=== PATIENT | female | born 1970 | race Caucasian/White ===

== ENCOUNTER 2017-07-06 14:09 | Emergency (ER) | payer OTHER ==
[2017-07-06] MEDS ORDERED: Diazepam 5 MG TAB ONE (14:49)
[2017-07-06] MEDS ORDERED: Ketorolac Tromethamine 30 MG/ML VIAL ONE ×2 (14:49→17:49)
[2017-07-06 15:04] LABS: #Basophils 0.1 thou/uL (0.0-0.2); #Eosinphils 0.2 thou/uL (0.0-0.7); #Lymphocytes 2.2 thou/uL (1.20-3.40); #Monocytes 0.5 thou/uL (0.11-0.59); #Neutrophils 4.7 thou/uL (1.40-6.50); %Eosinophils 2.3 % (0.0-10.0); %Lymphocytes 28.9 % (21.0-51.0); %Monocytes 5.9 % (0.0-10.0); %Neutrophils 61.9 % (42.0-75.0); Hemoglobin 15.3 g/dL (12.0-16.0); Mean Corpuscular HGB CONC 34.1 g/dL (32.0-36.0); Mean Corpuscular Hemoglobin 32.9 pg (27.0-31.0); Mean Corpuscular Volume 96.3 fl (81.0-99.0); Mean Platelet Volume 8.1 fL (7.4-10.4); Platelet Count 231 thou/uL (130-400); RBC Distribution Width 11.2 % (11.5-14.5); Red Blood Cell (RBC) Count 4.65 mill/uL (4.20-5.40); White Blood Cell (WBC) Count 7.6 thou/uL (4.8-10.8)
[2017-07-06 15:25] LABS: Anion Gap 14 mmol/L (10-20); BUN (Urea Nitrogen) 7 mg/dL (7.0-18.7); Calc. Creatinine Clearance 0 mL/min (70-130); Calcium 9.7 mg/dL (7.8-10.44); Carbon Dioxide 23 mmol/L (22-29); Chloride 102 mmol/L (98-107); Estimated GFR-MDRD 87; Glucose 102 mg/dL (70-105); Potassium 3.7 mmol/L (3.5-5.1); Sodium 135 mmol/L (136-145)
--- NOTE | 2017-07-06 16:10 | CT ---
EXAM: ABDOMEN CT WITHOUT CONTRAST PELVIC CT WITHOUT CONTRAST LIMITED CT OF THE LUMBAR SPINE 07/06/17 HISTORY: Excruciating back pain which began an hour ago. Patient was walking on a flat surface when patient to ok a bad step and felt a searing pain in her back. COMPARISON: None. TECHNIQUE: Abdomen and pelvic CT performed without IV contrast utilizing a renal stone protocol. Coronal reforma tted images are submitted for interpretation. Limited CT of the lumbar spine is performed with reformatted images. FINDINGS: ABDOMEN CT: Lung bases are clear. Normal heart size. No significant pericardial fluid. The descending thoracic ao rta and abdominal aorta have an overall normal caliber. No periaortic fat stranding. Gallbladder is surgically absent. No gastrohepatic, retrocrural or periportal lymphadenopathy. No mesenteric mass, lymphadenopathy, free air or free fluid. Limited evaluation of the solid organs due to lack of IV contrast. Grossly, no solid organ abnormalit y. Symmetric attenuation of the psoas muscles. Limited evaluation of the alimentary canal due to lack of oral contrast. No evidence of bowel obstruc tion. Ileocecal junction is normal. Normal caliber appendix. material in a nondistended, nondil ated colon. Bilaterally, no evidence of hydronephrosis, nephrolithiasis, or perinephric fat stranding. Bilateral ureters have a normal caliber. No hydroureter, ureteral fat stranding or ureterolithiasis. PELVIC CT: Uterus and adnexal structures are unremarkable. Urinary bladder is unremarkable. No retroperitoneal mass, lymphadenopathy or hematoma. There are no lytic or blastic lesions in the osseous structures. Lumbar spine vertebral body height is maintained. No fracture. No spondylolisthesis or spondylolysis. Limited evaluation of the contents of the central spinal canal and neural foramina. No high grade michael nosis. IMPRESSION: 1. No evidence of obstructive uropathy. 2. Normal caliber appendix. 3. No evidence of fracture. POS: [facility]
[2017-07-06 16:41] LABS: Bilirubin Negative (Negative); Blood, Urine Negative (Negative); Clarity CLEAR (Clear); Glucose, Urine (Dipstick) Negative (Negative); Leukocyte Trace (Negative); Nitrite Negative (Negative); Protein, Urine (Dipstick) Negative (Neg-Trace); Specific Gravity, Urine 1.004 (1.002-1.036); Urobilinogen 0.2 mg/dL (0.2-1.0)
[2017-07-06 16:43] LABS: Bacteria/HPF Rare-Few HPF (None Seen); Hyaline Casts/LPF 0-3 HYALINE CAST LPF (0-3 Hyaline); RBC/HPF None Seen HPF (0-3); Squamous Epithelial 0-3 HPF (0-3); WBC/HPF 0-3 HPF (0-3)
== END 2017-07-06 17:50 | disposition home or self-care (01) ==
LOC: ERS 14:09
DX: M54.5 Low back pain (principal); F32.9 Major depressive disorder, single episode, unspecified; Z79.899 Other long term (current) drug therapy
CPT/HCPCS: 36415; 74176; 80048; 81003; 81015; 85025; 96374; 96375; 96376; J1885; J2270

== ENCOUNTER 2017-09-05 07:11 | Outpatient (CLI) | payer OTHER | END 2017-09-05 07:12 | disposition home or self-care (01) | LOC: BICULT 07:11 | PROVIDERS: ATTEND Family Medicine | DX: R10.84 Generalized abdominal pain; Z90.49 Acquired absence of other specified parts of digestive tract | CPT/HCPCS: 76700 ==

== ENCOUNTER 2017-10-04 10:27 | Outpatient (CLI) | payer OTHER | END 2017-10-04 10:28 | disposition home or self-care (01) | LOC: BICMAMMO 10:27 | PROVIDERS: ATTEND Obstetrics & Gynecology | DX: Z12.31 Encounter for screening mammogram for malignant neoplasm of breast (principal) | CPT/HCPCS: 77063; 77067 ==

== ENCOUNTER 2019-01-02 08:05 | Outpatient (CLI) | payer OTHER ==
--- NOTE | 2019-01-02 08:53 | MMO ---
Bilateral MAMMO Bilat Screen [facility]. CLINICAL HISTORY: Patient is 48 years old and is seen for screening. The patient has no family history of breast cancer. The patient has no personal history of cancer. VIEWS: The views performed were: bilateral craniocaudal with tomosynthesis and bilateral mediolateral oblique with tomosynthesis. FILMS COMPARED: The present examination has been compared to prior imaging studies performed at [facility] on 03/10/2012, 06/11/2013, 05/20/2015 and 10/04/2017. MAMMOGRAM FINDINGS: There are scattered fibroglandular densities. There are no suspicious masses, suspicious calcifications, or new areas of architectural distortion. IMPRESSION: THERE IS NO MAMMOGRAPHIC EVIDENCE OF MALIGNANCY. A ROUTINE FOLLOW-UP MAMMOGRAM IN 1 YEAR IS RECOMMENDED. THE RESULTS OF THIS EXAM WERE SENT TO THE PATIENT. ACR BI-RADS Category 1 - Negative MAMMOGRAPHY NOTE: 1. A negative mammogram report should not delay a biopsy if a dominant of clinically suspicious mass is present. 2. Approximately 10% to 15% of breast cancers are not detected by mammography. 3. Adenosis and dense breasts may obscure an underlying neoplasm. Reported by: TRINI AMARO MD Electonically Signed: [id number]
== END 2019-01-02 08:06 | disposition home or self-care (01) ==
LOC: BICMAMMO 08:05
PROVIDERS: ATTEND Obstetrics & Gynecology
DX: Z12.31 Encounter for screening mammogram for malignant neoplasm of breast (principal)
CPT/HCPCS: 77063; 77067

== ENCOUNTER 2021-07-23 07:54 | Outpatient (CLI) | payer BC | END 2021-07-23 07:55 | disposition home or self-care (01) | LOC: BICMAMMO 07:54 | PROVIDERS: ATTEND Obstetrics & Gynecology | DX: Z12.31 Encounter for screening mammogram for malignant neoplasm of breast (principal) | CPT/HCPCS: 77063; 77067 ==

== ENCOUNTER 2022-04-20 23:20 | Observation (INO) | payer BC ==
[2022-04-20] MEDS ORDERED: Aspirin Chewable 81 MG TAB ONE (23:49)
[2022-04-21 00:55] LABS: #Basophils 0.1 thou/uL (0.0-0.2); #Eosinphils 0.2 thou/uL (0.0-0.7); #Lymphocytes 3.6 thou/uL (1.20-3.40); #Monocytes 0.7 thou/uL (0.11-0.59); #Neutrophils 4.2 thou/uL (1.40-6.50); %Basophils 0.9 % (0.0-1.0); %Eosinophils 1.9 % (0.0-10.0); %Lymphocytes 41.1 % (21.0-51.0); %Monocytes 8.4 % (0.0-10.0); %Neutrophils 47.7 % (42.0-75.0); Hemoglobin 13.3 g/dL (12.0-16.0); Mean Corpuscular HGB CONC 35.6 g/dL (32.0-36.0); Mean Corpuscular Hemoglobin 35.6 pg (27.0-31.0); Mean Platelet Volume 7.7 fL (7.4-10.4); Platelet Count 218 10x3/uL (130-400); RBC Distribution Width 10.7 % (11.5-14.5); Red Blood Cell (RBC) Count 3.73 mill/uL (4.20-5.40); White Blood Cell (WBC) Count 8.9 10x3/uL (4.8-10.8)
[2022-04-21 02:18] LABS: ALT (SGPT) 16 U/L (8-55); AST (SGOT) 14 U/L (5-34); Albumin 3.8 g/dL (3.5-5.0); Alkaline Phosphatase 62 U/L (40-110); Anion Gap 12 mmol/L (10-20); BUN (Urea Nitrogen) 10 mg/dL (9.8-20.1); Bilirubin, Total 0.4 mg/dL (0.2-1.2); CK (CPK) 61 U/L (29-168); Calc. Creatinine Clearance 0 mL/min (70-130); Calcium 8.9 mg/dL (7.8-10.44); Carbon Dioxide 26 mmol/L (22-29); Chloride 93 mmol/L (98-107); Estimated GFR 105; Globulin 2.4 g/dL (2.4-3.5); Glucose 97 mg/dL (70-105); Lipase 26 U/L (8-78); Potassium 3.1 mmol/L (3.5-5.1); Protein, Total 6.2 g/dL (6.0-8.3); Sodium 128 mmol/L (136-145)
[2022-04-21] MEDS ORDERED: Potassium Chloride 20 MEQ TAB ONE (03:00)
[2022-04-21] MEDS ORDERED: Acetaminophen 325 MG TAB PO PRN (03:35)
[2022-04-21] MEDS ORDERED: Ondansetron PF 4 MG/2 ML Vial IVP PRN (03:35)
[2022-04-21] MEDS ORDERED: Ondansetron ODT 4 MG TAB PO PRN (03:35)
[2022-04-21] MEDS ORDERED: Calcium Carbonate 500 MG ChewTAB PO PRN (03:35)
[2022-04-21] MEDS ORDERED: Nitroglycerin 0.4 MG TAB (25 Tab Bottle) SL PRN (03:48)
[2022-04-21 04:15] VITALS: BMI 29.9
[2022-04-21 04:22] LABS: Cardiac Risk 3.6 (Less than 4.5); Cholesterol 127 mg/dl (< 200 Desired); HDL Cholesterol 35 mg/dL (>60 Neg Risk); LDL Cholesterol, Calculated 67 mg/dL; Magnesium 1.8 mg/dL (1.6-2.6); Triglycerides 127 mg/dL (Less than 150)
[2022-04-21] MEDS ORDERED: ALPRAZolam 1 MG TAB PO PRN (04:52)
[2022-04-21 05:29] LABS: Troponin I Less than 0.010 ng/mL (< 0.028)
[2022-04-21] MEDS ORDERED: Potassium Chloride 20 MEQ TAB PO SCH (07:30)
[2022-04-21 07:35] LABS: Troponin I Less than 0.010 ng/mL (< 0.028)
[2022-04-21] MEDS ORDERED: Aspirin Chewable 81 MG TAB PO SCH (09:00)
[2022-04-21] MEDS ORDERED: Hydrochlorothiazide 25 MG TAB PO SCH (09:00)
[2022-04-21] MEDS ORDERED: Methimazole 5 MG TAB PO SCH (09:00)
[2022-04-21] MEDS ORDERED: Bupropion 150 MG XL TAB PO SCH (09:00)
[2022-04-21] MEDS ORDERED: Baclofen 10 MG TAB PO SCH (09:00)
[2022-04-21] MEDS ORDERED: Amitriptyline HCl 25 MG TAB PO SCH (09:00)
[2022-04-21] MEDS ORDERED: ALPRAZolam 1 MG TAB PO SCH (09:00)
[2022-04-21 11:55] VITALS: BP 111/78; TEMP 97.8
[2022-04-21] MEDS ORDERED: ADENOSINE 60 MG/20 ML VIAL ONE (12:00)
[2022-04-21] MEDS ORDERED: Atorvastatin Calcium 10 MG TAB PO SCH (21:00)
== END 2022-04-21 13:15 | disposition home or self-care (01) ==
LOC: ERS 23:20 → 2SW 04-21 02:41
PROVIDERS: ADMIT Internal Medicine; ATTEND Internal Medicine
DX: R07.9 Chest pain, unspecified (principal); E05.90 Thyrotoxicosis, unspecified without thyrotoxic crisis or storm; I10 Essential (primary) hypertension; E78.5 Hyperlipidemia, unspecified; G89.29 Other chronic pain; M54.50 Low back pain, unspecified; I45.10 Unspecified right bundle-branch block; Z79.899 Other long term (current) drug therapy; Z88.1 Allergy status to other antibiotic agents; Z88.8 Allergy status to other drugs, medicaments and biological substances; Z20.822 Contact with and (suspected) exposure to COVID-19
CPT/HCPCS: 36415; 71045; 78452; 80053; 80061; 82550; 83690; 83735; 83880; 84443; 84484; 85025; 85379; 93005; 93017; A9500; G0378; J0153; U0003; U0005

== ENCOUNTER 2023-07-21 09:41 | Outpatient (CLI) | payer BC | END 2023-07-21 09:42 | disposition home or self-care (01) | LOC: BICMAMMO 09:41 | PROVIDERS: ATTEND Family Medicine | DX: Z12.31 Encounter for screening mammogram for malignant neoplasm of breast (principal) | CPT/HCPCS: 77063; 77067 ==

== ENCOUNTER 2025-01-16 08:23 | Outpatient (CLI) | payer BC ==
[2025-01-16 09:44] LABS: Anion Gap 10 mmol/L (10-20); BUN (Urea Nitrogen) 11 mg/dL (9.8-20.1); Calc. Creatinine Clearance 0 mL/min (70-130); Calcium 9.1 mg/dL (7.8-10.44); Carbon Dioxide 26 mmol/L (22-29); Chloride 103 mmol/L (98-107); Glucose 125 mg/dL (70-105); Potassium 4.0 mmol/L (3.5-5.1); Sodium 135 mmol/L (136-145)
== END 2025-01-16 08:24 | disposition home or self-care (01) ==
LOC: LABBT 08:23
PROVIDERS: ATTEND Orthopaedic Surgery
DX: Z01.812 Encounter for preprocedural laboratory examination (principal); G56.02 Carpal tunnel syndrome, left upper limb
CPT/HCPCS: 80048

== ENCOUNTER 2025-01-21 06:03 | Day surgery (SDC) | payer BC ==
[2025-01-16 08:49] VITALS: BMI 30.2
[2025-01-21] MEDS ORDERED: CEFAZOLIN 2 GM VIAL ONE (06:15)
[2025-01-21] MEDS ORDERED: Ketorolac Tromethamine 30 MG (1 mL) VIAL ONE (06:59)
[2025-01-21] MEDS ORDERED: PROPOFOL 20 ML ONE ×2 (06:59)
[2025-01-21] MEDS ORDERED: Ondansetron PF 4 MG/2 ML Vial ONE (06:59)
[2025-01-21] MEDS ORDERED: fentaNYL PF 100 MCG/2 ML SYRINGE ONE (06:59)
[2025-01-21] MEDS ORDERED: HYDROcodone/Acetaminophen 5/325 mg Tablet ONE (08:21)
== END 2025-01-21 09:15 | disposition home or self-care (01) ==
LOC: SDC 06:03
PROVIDERS: ATTEND Orthopaedic Surgery
PROC: 01N50ZZ Release Median Nerve, Open Approach (ICD-10-PCS; principal; 2025-01-21)
DX: G56.02 Carpal tunnel syndrome, left upper limb (principal); M77.8 Other enthesopathies, not elsewhere classified; E03.9 Hypothyroidism, unspecified; Z90.49 Acquired absence of other specified parts of digestive tract; Z90.89 Acquired absence of other organs; Z88.1 Allergy status to other antibiotic agents; Z88.8 Allergy status to other drugs, medicaments and biological substances; Z79.890 Hormone replacement therapy
CPT/HCPCS: A6223; J0665; J1100; J1885; J2250; J2405; J2704

== ENCOUNTER 2025-02-05 10:42 | Outpatient (CLI) | payer BC | END 2025-02-05 10:43 | disposition home or self-care (01) | LOC: BICMAMMO 10:42 | PROVIDERS: ATTEND Obstetrics & Gynecology | DX: Z12.31 Encounter for screening mammogram for malignant neoplasm of breast (principal) | CPT/HCPCS: 77063; 77067 ==

== ENCOUNTER 2025-04-05 08:31 | Outpatient (CLI) | payer BC | END 2025-04-05 08:32 | disposition home or self-care (01) | LOC: BICRAD 08:31 | PROVIDERS: ATTEND Family Medicine | DX: R05.3 Chronic cough (principal) | CPT/HCPCS: 71046 ==